=== PATIENT | female | born 1960 | race Caucasian/White ===

== ENCOUNTER → 2017-01-11 | Outpatient (CLI) | payer MEDICARE ==
[~2017-01-11] MED LIST: DIAZEPAM 5 MG TABLET ONE
--- NOTE | 2017-01-11 15:06 | RADIOLOGY REPORT (SQ) ---
EXAM DESCRIPTION: MRI HEAD COMBO COMPLETED DATE/TIME: 01/11/2017 1:57 pm REASON FOR STUDY: TINNITUS LEFT EAR (H93.12) H93.12 TINNITUS, LEFT EAR COMPARISON: None. TECHNIQUE: Multiplanar imaging includes noncontrasted T1, T2, FLAIR, diffusion with ADC map and post gadolinium contrast T1 sequences. Images stored on PACS. Additional thin section axial T2 and axial pre and postcontrast T1 and coronal postcontrast T1 weight ed images through the internal auditory canals and inner ear structures were obtained. CONTRAST TYPE AND DOSE: 15 mL choose 3 RENAL FUNCTION: GFR > 60. LIMITATIONS: None. FINDINGS: ANATOMY: No developmental anomalies. Normal vascular flow voids. Pituitary gland is ismael ened against the floor of the sella, or "empty sella" CSF SPACES: Normal in size and contour. No hemorrhage. CEREBRUM: Sulci and gyri normal in size and contour. Normal white matter signal on FLAIR imaging. No evidence of hemorrhage, mass, or extraaxial fluid collection. No abnormal enhancement post contrast. POSTERIOR FOSSA: No signal alteration. No hemorrhage. No edema, masses, or mass effect. Internal faby tory canals, cerebellopontine angles, mastoids normal. No enhancing lesions. No abnormal enhancement post contrast. DIFFUSION IMAGING: Negative for acute or subacute infarction. ORBITS: No masses. Globes post bilateral cataract surgery PARANASAL SINUSES: No fluid levels. Mucosa normal. OTHER: No other significant finding. IMPRESSION: NORMAL MRI OF THE BRAIN WITHOUT AND WITH INTRAVENOUS GADOLINIUM CONTRAST. No MR findings to explain history of tinnitus left ear TECHNICAL DOCUMENTATION: JOB ID: [id number]- All Rights Reserved
== END ==
LOC: RAD 01-02 12:07
PROVIDERS: ATTEND Otolaryngology
DX: H93.12 Tinnitus, left ear (principal)
CPT/HCPCS: 82565; 70553; A9577; A9270